=== PATIENT | female | born 2000 | race Caucasian/White ===

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

== ENCOUNTER 2023-03-02 10:08 | Emergency (ER) | payer MEDICAID, OTHER ==
[~2023-03-02] VITALS: Ht 165.1 cm; Wt 117.3 kg
[2023-03-02 10:44] VITALS: BP 121/79; PULSE 78; RESP 16; TEMP 98.5; O2SAT 96
[2023-03-02] MEDS ORDERED: HYDROcodone-ACET 5/325MG TAB PO ONE (13:30)
[2023-03-02] MEDS ORDERED: IBUP1TAB5 PO (13:38)
[2023-03-02] MEDS ORDERED: BACL10TA PO (13:38)
== END 2023-03-02 13:38 | disposition home or self-care (01) ==
LOC: ER 10:08
DX: S33.5XXA Sprain of ligaments of lumbar spine, initial encounter (principal); S00.03XA Contusion of scalp, initial encounter; W01.0XXA Fall on same level from slipping, tripping and stumbling without subsequent striking against object, initial encounter; Y93.89 Activity, other specified; Y92.89 Other specified places as the place of occurrence of the external cause; Y99.8 Other external cause status
CPT/HCPCS: 70450; 72131